=== PATIENT | female | born 1995 | race Caucasian/White ===

== ENCOUNTER 2019-03-13 23:16 | Emergency (ER) | payer OTHER ==
[~2019-03-13] VITALS: Ht 154.9 cm; Wt 57.2 kg
[2019-03-13 23:20] VITALS: BP 131/90
--- NOTE | 2019-03-13 23:21 | NUR ---
PT TAKEN TO BED 11
--- NOTE | 2019-03-13 23:25 | NUR ---
ASSUMED CARE OF PT AT THIS TIME. C/O POSSIBLE INSECT BITES TO BI-LATERAL LOWER EXTREMITIES X 1 DAY. AAOX4 WITH EVEN AND STEADY GAIT; PATIENT STATES PAIN OF 0/10; VSS; PATIENT POSITIONED FOR COMFORT; HOB ELEVATED; BEDRAILS UP X2; BED DOWN. ER MD MADE AWARE OF PT STATUS. WILL CONTINUE TO MONITOR.
--- NOTE | 2019-03-13 23:32 | NUR ---
Dr. Jones examining patient.
[2019-03-13] MEDS ORDERED: IBUPROFEN 800 MG TAB PO ONE (23:50)
[2019-03-13] MEDS ORDERED: SULFAMETH/TRIMETH DS 800/160MG 1 TAB PO ONE (23:50)
[2019-03-14 00:15] VITALS: BP 131/90
--- NOTE | 2019-03-14 00:15 | NUR ---
Patient discharged with v/s stable. Written and verbal after care instructions given and explained. Patient alert, oriented and verbalized understanding of instructions. Ambulatory with steady gait. All questions addressed prior to discharge. ID band removed. Patient advised to follow up with PMD. Rx of BACTRIM AND HYDROCORTISONE OINTMENT given. Patient educated on indication of medication including possible reaction and side effects. Opportunity to ask questions provided and answered.
== END 2019-03-14 00:15 | disposition home or self-care (01) ==
LOC: MED 23:16
DX: L03.115 Cellulitis of right lower limb (principal); L03.116 Cellulitis of left lower limb; R03.0 Elevated blood-pressure reading, without diagnosis of hypertension; Z88.0 Allergy status to penicillin
CPT/HCPCS: 99283

== ENCOUNTER 2019-04-16 10:35 | Emergency (ER) | payer OTHER ==
[~2019-04-16] VITALS: Ht 154.9 cm; Wt 54.0 kg
[2019-04-16 11:00] VITALS: BP 124/90
--- NOTE | 2019-04-16 11:04 | NUR ---
PT AMBULATED TO LOBBY AT THIS TIME, VSS.
--- NOTE | 2019-04-16 12:08 | NUR ---
Patient ambulated to bed 10. RN evaluating patient at bedside.
--- NOTE | 2019-04-16 12:15 | NUR ---
24/F presents to ED with complaints of vaginal discharge and itching for the past 2 weeks. Pt denies any dysuria or s/sx of UTI. Pt also c/o foul odor to her discharge. Denies any pain at this time. VSS. Pt states she took "Sulfa" yesterday that she had from a skin infection. Hx: asthma
--- NOTE | 2019-04-16 14:20 | NUR ---
Female Technical Support Technician accompanied female patient for Pelvic Exam.
[2019-04-16 14:55] VITALS: BP 124/90
--- NOTE | 2019-04-16 14:56 | NUR ---
Patient discharged with v/s stable. Written and verbal after care instructions given and explained. Patient alert, oriented and verbalized understanding of instructions. Ambulatory with steady gait. All questions addressed prior to discharge. ID band removed. Patient advised to follow up with PMD. Rx of PHENAZOPYRIDINE given. Patient educated on indication of medication including possible reaction and side effects. Opportunity to ask questions provided and answered.
[2019-04-18 06:07] LABS: CHLAMYDIA TRACHOMATIS AMP DNA Negative (Negative)
== END 2019-04-16 14:54 | disposition home or self-care (01) ==
LOC: MED 10:35
DX: N76.0 Acute vaginitis (principal); J45.909 Unspecified asthma, uncomplicated; Z88.0 Allergy status to penicillin; Z98.890 Other specified postprocedural states
CPT/HCPCS: 36415; 81002; 81025; 87210; 87491; 99283

== ENCOUNTER 2019-08-18 10:42 | Emergency (ER) | payer OTHER ==
[~2019-08-18] VITALS: Ht 154.9 cm; Wt 59.0 kg
--- NOTE | 2019-08-18 10:50 | NUR ---
CALLED PT AT 1046, NO RESPONSE FROM JENNIFER
[2019-08-18 11:07] VITALS: BP 108/70
--- NOTE | 2019-08-18 11:10 | NUR ---
DR. BRYAN EVALUATING PT AT BEDSIDE.
--- NOTE | 2019-08-18 11:13 | NUR ---
C/O 10/01 R EYE PAIN & L EAR PAIN/MUFFLED HEARING X2 DAYS. PT STATES SHE HAS ALSO HAD A FEVER AT HOME. VSS; BEDRAILS UP X1 HX: NONE RX: NONE Addendum: 08/18/19 at 1133 by LEIDY +SNEEZING, RUNNY NOSE, NASAL CONGESTION, BODY ACHES
[2019-08-18] MEDS ORDERED: IBUPROFEN 600 MG TAB PO ONE (11:15)
[2019-08-18] MEDS ORDERED: MECLIZINE 25 MG TAB PO ONE (11:15)
[2019-08-18] MEDS ORDERED: hydrOXYzine HCL 25 MG TAB PO ONE (11:15)
--- NOTE | 2019-08-18 11:26 | NUR ---
OBTAINED INFLUENZA SWAB. PT TO BATHROOM TO PROVIDE URINE SAMPLE.
--- NOTE | 2019-08-18 11:32 | NUR ---
INFLUENZA SWAB AND URINE SAMPLE PICKED UP BY AUTOMATIC BEADING LATHE OPERATOR
--- NOTE | 2019-08-18 12:41 | NUR ---
Patient discharged with v/s stable. Written and verbal after care instructions given and explained. Patient alert, oriented and verbalized understanding of instructions. Ambulatory with steady gait. All questions addressed prior to discharge. ID band removed. Patient advised to follow up with PMD. Rx of TAMIFLU, MOTRIN, PROMETHAZINE given. Patient educated on indication of medication including possible reaction and side effects. Opportunity to ask questions provided and answered.
[2019-08-18 12:47] VITALS: BP 113/68
== END 2019-08-18 12:41 | disposition home or self-care (01) ==
LOC: MED 10:42
DX: J11.1 Influenza due to unidentified influenza virus with other respiratory manifestations (principal); J45.909 Unspecified asthma, uncomplicated; H57.11 Ocular pain, right eye; H92.02 Otalgia, left ear; Z88.0 Allergy status to penicillin
CPT/HCPCS: 81025; 87804; 99284; J8597

== ENCOUNTER 2019-09-18 22:29 | Emergency (ER) | payer OTHER ==
[~2019-09-18] VITALS: Ht 152.4 cm; Wt 54.4 kg
[2019-09-18 22:30] VITALS: BP 109/70
--- NOTE | 2019-09-18 22:30 | NUR ---
TO [facility] AMBULATORY
--- NOTE | 2019-09-18 22:48 | NUR ---
C/O OF BILAT EAR PAIN X TODAY. RATES PAIN 8/10 AND DESCRIBES IT ACHING. TONSILS SHOW REDNESS. NO N,V,D. TOOK IBUPROFEN 1999. CHANGE OF APPETITE PRESENT. ABD IS SOFT, FLAT, NONTENDER, ACTIVE BS. VSS. ALLERGIES: PENCILLIN PMH: ASTHMA, MIGRAINE.
[2019-09-18] MEDS ORDERED: DEXAMETHASONE 4 MG/ML VIAL PO ONE (23:10)
[2019-09-18] MEDS ORDERED: ACETAMINOPHEN 325 MG TAB PO ONE (23:10)
--- NOTE | 2019-09-19 00:25 | NUR ---
Patient discharged with v/s stable. She states feeling relief with 4/10 tollerable pain. Written and verbal after care instructions given and explained. Patient alert, oriented and verbalized understanding of instructions. Ambulatory with steady gait. All questions addressed prior to discharge. ID band removed. Patient advised to follow up with PMD. Rx of Allergy Loratadine and Cepacol Sensations Cooling given. Patient educated on indication of medication including possible reaction and side effects. Opportunity to ask questions provided and answered.
[2019-09-19 00:26] VITALS: BP 111/86
== END 2019-09-19 00:26 | disposition home or self-care (01) ==
LOC: MED 22:29
DX: J02.8 Acute pharyngitis due to other specified organisms (principal); J45.909 Unspecified asthma, uncomplicated; Z88.0 Allergy status to penicillin; G43.909 Migraine, unspecified, not intractable, without status migrainosus
CPT/HCPCS: 87081; 99283; J1100

== ENCOUNTER 2020-04-25 18:33 | Emergency (ER) | payer OTHER ==
[~2020-04-25] VITALS: Ht 154.9 cm; Wt 60.3 kg
[2020-04-25 18:42] VITALS: BP 123/78
--- NOTE | 2020-04-25 19:00 | NUR ---
ambulated to a with steady gait.
[2020-04-25] MEDS ORDERED: predniSONE 20 MG TAB PO ONE (19:05)
[2020-04-25] MEDS ORDERED: cephALEXin 500 MG CAP PO ONE (19:05)
--- NOTE | 2020-04-25 19:25 | NUR ---
25 year old female with c/o left fourth digit pain and swelling x 1 day. states 5/10 pain. denies any other s/sx. denies any injury or trauma . pmhx: psoriasis alllx: pcn
[2020-04-25 19:26] VITALS: BP 123/78
--- NOTE | 2020-04-25 19:54 | NUR ---
Patient discharged with v/s stable. Written and verbal after care instructions given and explained. Patient alert, oriented and verbalized understanding of instructions. Ambulatory with steady gait. All questions addressed prior to discharge. ID band removed. Patient advised to follow up with PMD. Rx of keflex, benadryl, and prednisone given. Patient educated on indication of medication including possible reaction and side effects. Opportunity to ask questions provided and answered.
== END 2020-04-25 19:54 | disposition home or self-care (01) ==
LOC: MED 18:33
DX: L25.9 Unspecified contact dermatitis, unspecified cause (principal); R03.0 Elevated blood-pressure reading, without diagnosis of hypertension; E11.9 Type 2 diabetes mellitus without complications; Z88.0 Allergy status to penicillin
CPT/HCPCS: 99283; J7512

== ENCOUNTER 2021-03-23 07:09 | Emergency (ER) | payer OTHER ==
[~2021-03-23] VITALS: Ht 154.9 cm; Wt 66.7 kg
[2021-03-23 07:11] VITALS: BP 109/67
--- NOTE | 2021-03-23 07:14 | NUR ---
TO LOBBY A/W BED AMBULATORY
--- NOTE | 2021-03-23 07:31 | NUR ---
PT IN [facility] TO BE ASSESSED BY MD.
[2021-03-23] MEDS ORDERED: PYR100 PO (07:44)
[2021-03-23] MEDS ORDERED: SULF-59 PO (07:44)
--- NOTE | 2021-03-23 07:44 | NUR ---
DR. FRASER WITH PT FOR FURTHER EVALUATION.
--- NOTE | 2021-03-23 07:49 | NUR ---
NO NURSING INTERVENTIONS DONE NO COMPLETE ASSESSMENT NEEDED.
--- NOTE | 2021-03-23 07:50 | NUR ---
Patient discharged with v/s stable. Written and verbal after care instructions given URINARY TRACT INFECTION and explained. Patient alert, oriented and verbalized understanding of instructions. Ambulatory with steady gait. All questions addressed prior to discharge. ID band removed. Patient advised to follow up with PMD. Rx of BACTRIM TABLET PO BID FOR 7DAYS, AND PYRIDUM 100MG PO TID FOR 3 DAYS given. Patient educated on indication of medication including possible reaction and side effects. Opportunity to ask questions provided and answered.
== END 2021-03-23 07:50 | disposition home or self-care (01) ==
LOC: MED 07:09
DX: N39.0 Urinary tract infection, site not specified (principal); J45.909 Unspecified asthma, uncomplicated; Z88.0 Allergy status to penicillin; Z98.890 Other specified postprocedural states
CPT/HCPCS: 81002; 81025; 99283

== ENCOUNTER 2022-09-27 15:12 | Emergency (ER) | payer OTHER ==
[~2022-09-27] VITALS: Ht 154.9 cm; Wt 62.1 kg
[~2022-09-27 15:12] MED LIST: PYR100 PO; SULF-59 PO
[2022-09-27 15:31] VITALS: BP 115/62
[2022-09-27] MEDS ORDERED: BPM/118S31 PO (18:14)
[2022-09-27] MEDS ORDERED: ALBU0.0912 IH (18:14)
== END 2022-09-27 18:31 | disposition home or self-care (01) ==
LOC: MED 15:12
DX: U07.1 COVID-19 (principal); R05.9 Cough, unspecified; R09.89 Other specified symptoms and signs involving the circulatory and respiratory systems; M79.10 Myalgia, unspecified site; R06.02 Shortness of breath; J45.909 Unspecified asthma, uncomplicated; Z88.0 Allergy status to penicillin; Z79.899 Other long term (current) drug therapy
CPT/HCPCS: 99283

== ENCOUNTER 2022-12-27 09:13 | Emergency (ER) | payer OTHER ==
[~2022-12-27] VITALS: Ht 157.5 cm; Wt 62.1 kg
[~2022-12-27 09:13] MED LIST changes: +ALBU0.0912 IH; +BPM/118S31 PO
[2022-12-27 09:42] VITALS: BP 109/71
--- NOTE | 2022-12-27 10:16 | NUR ---
PT C/O RT HAND 4TH DIGIT PAIN AND SWELLING X 3 WKS. MSE COMPLETED. X-RAY AT BEDSIDE. NAD.
[2022-12-27 10:36] VITALS: BP 101/62
--- NOTE | 2022-12-27 10:36 | NUR ---
The patient's care was reviewed and supervised by ED Agency Nurse 8, RN, RN.
--- NOTE | 2022-12-27 10:37 | NUR ---
Patient discharged with v/s stable. Written and verbal after care instructions given and explained. Patient verbalized understanding. Ambulatory with steady gait. All questions addressed prior to discharge. Advised to follow up with PMD.
== END 2022-12-27 10:37 | disposition home or self-care (01) ==
LOC: MED 09:13
DX: M79.644 Pain in right finger(s) (principal); J45.909 Unspecified asthma, uncomplicated; Z88.0 Allergy status to penicillin; Z79.899 Other long term (current) drug therapy
CPT/HCPCS: 73130; 99283; Q0092